=== PATIENT | female | born 1990 | race Caucasian/White ===

== ENCOUNTER → 2019-03-02 | Outpatient (CLI) | payer OTHER ==
[2019-03-02 11:07] LABS: BASO % 0.2 % (0.0-1.0); EOS # 0.1 10^3/uL (0.0-0.5); EOS % 0.5 % (0.0-3.0); HEMATOCRIT 40.2 % (36.0-47.0); HEMOGLOBIN 13.6 g/dl (12.0-15.5); LYMPH # 2.6 10^3/uL (1.5-5.0); LYMPH % 24.9 % (24.0-44.0); MEAN CORPUSCULAR HEMOGLOBIN 32.1 pg (27.0-33.0); MEAN CORPUSCULAR HGB CONC 33.8 g/dl (32.0-36.5); MEAN CORPUSCULAR VOLUME 94.8 fl (80.0-96.0); MONO # 0.7 10^3/uL (0.0-0.8); MONO % 6.3 % (0.0-5.0); NEUTROPHILS # 7.1 10^3/uL (1.5-8.5); NEUTROPHILS % 67.8 % (36.0-66.0); PLATELET COUNT, AUTOMATED 296 10^3/uL (150-450); RED BLOOD COUNT 4.24 10^6/uL (4.00-5.40); WHITE BLOOD COUNT 10.4 10^3/uL (4.0-10.0)
[2019-03-02 11:27] LABS: GLUCOSE CHALLENGE TEST 1 HOUR 83 MG/DL (LESS THAN 140)
[2019-03-02 11:52] LABS: RUBELLA IgG QUALITATIVE IMMUNE (IMMUNE)
[2019-03-02 12:25] LABS: CHLAMYDIA DNA AMPLIFICATION NEGATIVE (NEGATIVE); GC DNA AMPLIFICATION NEGATIVE (NEGATIVE)
[2019-03-02 14:06] LABS: HIV 1&2 SCREEN CENTAUR NEGATIVE (NEGATIVE)
== END ==
LOC: M LAB 08:10
PROVIDERS: ATTEND Advanced Practice Midwife
DX: Z34.01 Encounter for supervision of normal first pregnancy, first trimester (principal); Z36.89 Encounter for other specified antenatal screening; Z3A.09 9 weeks gestation of pregnancy

== ENCOUNTER → 2019-06-08 | Outpatient (CLI) | payer OTHER ==
[2019-06-08 10:55] LABS: HEMATOCRIT 38.3 % (36.0-47.0); HEMOGLOBIN 12.9 g/dl (12.0-15.5); MEAN CORPUSCULAR HEMOGLOBIN 32.2 pg (27.0-33.0); MEAN CORPUSCULAR HGB CONC 33.7 g/dl (32.0-36.5); MEAN CORPUSCULAR VOLUME 95.5 fl (80.0-96.0); PLATELET COUNT, AUTOMATED 282 10^3/uL (150-450); RED BLOOD COUNT 4.01 10^6/uL (4.00-5.40); WHITE BLOOD COUNT 12.6 10^3/uL (4.0-10.0)
== END ==
LOC: M LAB 09:15
PROVIDERS: ATTEND Advanced Practice Midwife
DX: Z34.02 Encounter for supervision of normal first pregnancy, second trimester (principal); Z36.89 Encounter for other specified antenatal screening

== ENCOUNTER → 2019-08-20 | Outpatient (REF) | payer OTHER | LOC: M PLALAB 09:57 | PROVIDERS: ATTEND Advanced Practice Midwife | DX: O99.213 Obesity complicating pregnancy, third trimester (principal); Z36.89 Encounter for other specified antenatal screening; Z3A.00 Weeks of gestation of pregnancy not specified ==

== ENCOUNTER 2019-09-16 09:28 | Inpatient (IN) | payer OTHER ==
[~2019-09-16] VITALS: Ht 154.9 cm; Wt 107.6 kg
[2019-09-16] VITALS (14 sets, daily range): BP systolic 121–135; BP diastolic 69–85
[2019-09-16] MEDS ORDERED: PRENTAB9 PO (09:49)
[2019-09-16] MEDS ORDERED: PENICILLIN G POTASSIUM IV 5 MU in D5W MINI-BAG PLUS 100 ML IV STA (10:16)
[2019-09-16] MEDS: miSOPROStol 50 MCG 1/2 TAB (S0191) PO SCH ×3 (10:42→18:46)
[2019-09-16 10:47] LABS: HEMATOCRIT 39.2 % (36.0-47.0); HEMOGLOBIN 13.5 g/dl (12.0-15.5); MEAN CORPUSCULAR HEMOGLOBIN 32.6 pg (27.0-33.0); MEAN CORPUSCULAR HGB CONC 34.4 g/dl (32.0-36.5); MEAN CORPUSCULAR VOLUME 94.7 fl (80.0-96.0); PLATELET COUNT, AUTOMATED 288 10^3/uL (150-450); RED BLOOD COUNT 4.14 10^6/uL (4.00-5.40); WHITE BLOOD COUNT 13.6 10^3/uL (4.0-10.0)
--- NOTE | 2019-09-16 12:06 | HPE ---
DATE OF ADMISSION: 09/16/2019 HISTORY: Jennifer is a 29-year-old, one, para 0, at 40 and 6/7 weeks gestation, with expected date of confinement (EDC) of 09/10/2019 based on last menstrual period and confirmed by first trimester ultrasound . She presents to labor and delivery today for induction due to post-term . She denies vaginal bleeding or leakage of fluid as well as painful contractions and the fetus has been active. Her care was [facility] at [facility] in the first trimester. course complicated by prior smoker, obesity and GBS positive. OBSTETRICAL HISTORY: [facility] OBSTETRIC LABS: A+, antibody screen negative, RPR negative, hepatitis B surface antigen negative, antibody nonreactive, HIV negative, gonorrhea and chlamydia negative, rubella immune. Urine culture negative. GDS normal at 108. GBS positive. PAST MEDICAL HISTORY: Noncontributory. SURGERIES: None. FAMILY HISTORY: Non-insulin dependent diabetes mellitus. SOCIAL HISTORY: The patient is a nonsmoker. She denies alcohol and drug use. She is . No history of sexually transmitted infections. She denies history of abuse - physical, sexual and emotional. ALLERGIES: No known drug allergies. CURRENT MEDICATION: vitamins. OBJECTIVE: Blood pressure is 134/84. Complete set of vital signs have yet to be taken. She is alert and oriented x3 in no apparent distress. heart rate is 150 with moderate variability, positive accelerations, no decelerations. Contractions: None: Sterile Vaginal Exam: 1, 50%, -3, posterior, soft. Bedside ultrasound confirms cephalic presentation. ASSESSMENT: Intrauterine at 40 and 6/7 weeks. Heart rate category one. Post-term . PLAN: Admit the patient to labor and delivery. Saline lock. Regular diet at this time. Routine labs. Out of bed ad gail. Start misoprostol 50 mcg by mouth every 4 hours for cervical ripening. I did review risks, benefits and alternatives. All of her questions have been answered. She has been verbally consented for emergency surgery and blood products if necessary. I do anticipate cervical ripening.
[2019-09-16] MEDS ORDERED: PENICILLIN G POTASSIUM IV 2.5 MU in IV 1 EA IV SCH (14:30)
[2019-09-16] MEDS ORDERED: SLF 3 ML SYR IV PRN (15:00)
[2019-09-16] MEDS ORDERED: PROMETHAZINE INJ 25 MG/ML VIAL (J2550) IV ONE (21:30)
[2019-09-16] MEDS ORDERED: BUTORPHANOL 2 MG/ML INJ (J0595) IV ONE (21:30)
[2019-09-16] MEDS ORDERED: SLF 3 ML SYR IV SCH (22:00)
[2019-09-16] MEDS: LR 1,000 ML IV SCH (23:26)
[2019-09-16] MEDS ORDERED: FENTANYL 2MCG/ML ROPIVACAINE 0.2% IN 0.9% NACL 100ML IVBAG As Ordered ONE (23:28)
[2019-09-17] VITALS (76 sets, daily range): BP systolic 84–169; BP diastolic 49–103
[2019-09-17] MEDS: FENTANYL/ROPIVACAINE/NACL BAG 100 ML EPIDURAL SCH ×2 (00:25→07:57)
[2019-09-17] MEDS: LACTATED RINGER'S 1000 ML IV PRN ×2 (00:29→09:12)
[2019-09-17] MEDS ORDERED: EPIDURAL COMMENT XX SCH (00:30)
[2019-09-17] MEDS ORDERED: ePHEDrine SULFATE 25 MG/5 ML(5MG/ML) SYRINGE IV PRN (00:30)
[2019-09-17] MEDS ORDERED: ONDANSETRON 4MG/2ML VIAL IV PRN ×2 (00:30→14:45)
[2019-09-17] MEDS ORDERED: EPIDURAL/PCA KEYS XX PRN (00:30)
[2019-09-17] MEDS ORDERED: NALOXONE INJ 0.4MG/1ML VIAL (J2310 PER 1MG) IV PRN (00:30)
[2019-09-17] MEDS ORDERED: REFRIGERATOR IV KEYS XX PRN (00:30)
[2019-09-17] MEDS ORDERED: diphenhydrAMINE 50MG/ML VIAL (J1200) IV PRN (00:30)
[2019-09-17] MEDS ORDERED: OXYTOCIN DRIP 30 UNITS in IV 1 EA IV SCH (01:00)
[2019-09-17] MEDS ORDERED: PENICILLIN G POTASSIUM IV 5 MU in D5W MINI-BAG PLUS 100 ML IV STA (01:12)
[2019-09-17] MEDS ORDERED: fentaNYL 100 MCG/2 ML INJECTION (J3010) As Ordered ONE (04:54)
[2019-09-17] MEDS: PENICILLIN G POTASSIUM IV 2.5 MU in IV 1 EA IV SCH ×2 (06:39→10:13)
[2019-09-17] MEDS: PRENATAL VITAMINS CHEWABLE TABLET PO SCH (09:00)
[2019-09-17] MEDS: LR 1,000 ML IV SCH ×2 (09:12→10:13)
[2019-09-17] MEDS ORDERED: ACETAMINOPHEN TAB 650MG DOSE (2X325MG) PO PRN (14:45)
[2019-09-17] MEDS ORDERED: MEASLES,MUMPS,RUBELLA VACCINE INJ (MMR-II) (90707) SC SCH (14:45)
[2019-09-17] MEDS ORDERED: IBUPROFEN 600 MG TAB PO PRN (14:45)
[2019-09-17] MEDS ORDERED: DOCUSATE SODIUM 100 MG CAP PO PRN (14:45)
[2019-09-17] MEDS ORDERED: OXYTOCIN DRIP 30 UNITS in IV 1 EA IV ONE (14:45)
[2019-09-17] MEDS ORDERED: DIBUCAINE 1% OINTMENT 30GM TOP PRN (14:45)
[2019-09-17] MEDS ORDERED: IBUPROFEN 800 MG TAB PO PRN (14:45)
[2019-09-17] MEDS ORDERED: RHOGAM 300 MCG (1500 IU) INJ (J2790) IM SCH (14:45)
[2019-09-17] MEDS ORDERED: ACETAMINOPHEN 500 MG TAB PO PRN (14:45)
[2019-09-17] MEDS ORDERED: METHYLERGONOVINE MALEATE 0.2 MG TAB PO PRN (14:45)
[2019-09-18 05:58] VITALS: BP 110/68
[2019-09-18] MEDS: PRENATAL VITAMINS CHEWABLE TABLET PO SCH (07:32)
[2019-09-18 18:00] VITALS: BP 117/72
[2019-09-19 06:14] VITALS: BP 112/65
[2019-09-19] MEDS: PRENATAL VITAMINS CHEWABLE TABLET PO SCH (07:51)
--- NOTE | 2019-09-24 11:22 | DN ---
DATE: 09/17/2019 PREDELIVERY DIAGNOSIS: A 41 weeks induction. POSTDELIVERY DIAGNOSIS: Delivered. PROCEDURE: Spontaneous vaginal delivery. FOUNDRY OPERATOR: Dr. Jeff Ram ANESTHESIA: Epidural. ESTIMATED BLOOD LOSS: 400 mL. FINDINGS: A 6-pound 5-ounce female with scores 8 and 9. DELIVERY SUMMARY: After a 1-hour and 10-minute second stage of labor, the patient had spontaneous delivery of a 6-pound 5 ounce female infant under epidural anesthesia. There was no nuchal cord. The shoulders delivered with ease. The was handed to the mother and cried quickly. The cord was doubly clamped and cut. The placenta delivered spontaneously and appeared to be intact. The patient received intravenous (IV) Pitocin immediately after delivery of the placenta. A small second-degree perineal laceration was repaired with 2-0 chromic in the usual fashion. Sponge and needle counts were correct.
== END 2019-09-19 13:55 | disposition home or self-care (01) | DRG 807 ==
LOC: M LDI 09:28 → M OBS 09-17 16:33
PROVIDERS: ADMIT Advanced Practice Midwife; ATTEND Advanced Practice Midwife
PROC: 10E0XZZ Delivery of Products of Conception, External Approach (ICD-10-PCS; principal; 2019-09-17)
PROC: 0KQM0ZZ Repair Perineum Muscle, Open Approach (ICD-10-PCS; 2019-09-17)
DX: O48.0 Post-term pregnancy (principal); Z37.0 Single live birth; Z3A.40 40 weeks gestation of pregnancy; O99.824 Streptococcus B carrier state complicating childbirth; E66.9 Obesity, unspecified; O99.214 Obesity complicating childbirth; O70.1 Second degree perineal laceration during delivery